=== PATIENT | female | born 1980 | race Caucasian/White ===

== ENCOUNTER 2021-07-13 13:29 | Emergency (ER) | payer OTHER, SELFPAY ==
[2021-07-13 13:36] VITALS: BP 158/96; PULSE 83; RESP 16; TEMP 36.6; O2SAT 100
--- NOTE | 2021-07-13 13:53 | ED.URI ---
HPI - URI/Sore Throat General Chief Complaint: Upper Respiratory Infection Stated Complaint: sore throat Source: patient and RN notes reviewed Limitations: no limitations History of Present Illness HPI Narrative: The patient, a non-smoker/ occ drinker on several meds, presents with sore throat. 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 No fever measured, shortness of breath, cough, loose loss of taste/smell, S OB, wheezing/sneezing, CP, vomiting/diarrhea, rash. She had a PCR test done with results pending; symptoms are mild, worse eating Related Data Home Medications Medication Instructions Recorded Confirmed albuterol sulfate [Ventolin HFA] INHALATION 07/13/21 bupropion HCl [Wellbutrin XL] mg PO 07/13/21 dextroamphetamine-amphetamine 20 mg PO BID 07/13/21 07/13/21 [Adderall] fexofenadine [Venus] 180 mg PO DAILY 07/13/21 07/13/21 hydrochlorothiazide 25 mg PO DAILY 07/13/21 07/13/21 lamotrigine 75 mg PO BID 07/13/21 07/13/21 levothyroxine 07/13/21 metformin 500 mg PO DAILY 07/13/21 07/13/21 montelukast 10 mg PO DAILY 07/13/21 07/13/21 [id number] carb-vit K tablet 07/13/21 [Women's Multivitamin] Allergies Allergy/AdvReac Type Severity Reaction Status Date / Time fluticasone [From Flonase] Allergy Nausea and Verified 07/13/21 13:49 Vomiting Review of Systems Review of Systems: General/Constitutional: No weight loss,fever Eyes: N0: Redness,discharge Respiratory: Denies: Hemoptysis Gastrointestinal: No Vomiting, Bleeding-rectal Skin: No Lumps, eruption Psychiatric: No: Suicida ideationl PMFSH Comments At time of signature, agree with nursing past medical, surgical, social and family history. There is no relevant family history pertinent to the presenting complaint Exam Narrative: General Appearance: Well appearing, overweight/well nourished,, Conjunctiva clear Ears: Auditory canal normal, TM normal Nose: Rhinorrhea, Mucousal erythema Mouth/Throat: MM moist, Uvula midline, Pharyngeal erythema ; Supple, Respiratory: No respiratory distress, Breath sounds equal, Clear to auscultation Musculoskeletal: Non tender, Normal strength; Warm, Dry Neurological: A&O x3,, Normal affect Course Vital Signs Vital signs: Vital Signs Temperature 97.9 F 07/13/21 13:36 Pulse Rate 83 07/13/21 13:36 Respiratory Rate 16 07/13/21 13:36 Blood Pressure 158/96 H 07/13/21 13:36 Pulse Oximetry 100 07/13/21 13:36 Temperature 97.9 F 07/13/21 13:36 Pulse Rate 83 07/13/21 13:36 Respiratory Rate 16 07/13/21 13:36 Blood Pressure 158/96 H 07/13/21 13:36 Pulse Oximetry 100 07/13/21 13:36 MDM - URI/Sore Throat Lab Data Labs: Strep Screen Presumptive Negative *(Reference Range: Negative)* Strep Screen Presumptive Negative *(Reference Range: Negative)* Discharge Plan Discharge Clinical Impression: Odynophagia Patient Disposition: Home, Self-Care Condition: Stable Instructions: Pharyngitis (ED) Prescriptions: New azithromycin 250 mg tablet See Rx Instructions .ROUTE .COMPLEX Qty: 6 RF: 0 lidocaine HCl [Lidocaine Viscous] 2 % solution 5 ml MUCOUS MEM QID PRN (Reason: pain) Qty: 100 RF: 0 No Action fexofenadine [Venus] 180 mg Tablet 180 mg PO DAILY RF: 0 lamotrigine 25 mg Tablet 75 mg PO BID RF: 0 levothyroxine 88 mcg Tablet RF: 0 dextroamphetamine-amphetamine [Adderall] 20 mg Tablet 20 mg PO BID RF: 0 montelukast 10 mg Tablet 10 mg PO DAILY RF: 0 hydrochlorothiazide 25 mg Tablet 25 mg PO DAILY RF: 0 albuterol sulfate [Ventolin HFA] 90 mcg/actuation Hfa Aerosol Inhaler INHALATION RF: 0 metformin 500 mg Tablet Extended Release 24 Hr 500 mg PO DAILY RF: 0 bupropion HCl [We
== END 2021-07-13 14:37 | disposition home or self-care (01) ==
PROVIDERS: Emergency Provider Emergency Medicine
DX: R13.10 Dysphagia, unspecified (principal); I10 Essential (primary) hypertension; J45.909 Unspecified asthma, uncomplicated; E03.9 Hypothyroidism, unspecified; E28.2 Polycystic ovarian syndrome
CPT/HCPCS: 87081; 87426; 87880; 99213; C9803; G0463